=== PATIENT | male | born 1965 | race Caucasian/White ===

== ENCOUNTER 2020-04-07 12:41 | Outpatient (CLI) | payer OTHER, SELFPAY ==
--- NOTE | ~2020-04-07 | MR_ITS ---
EXAMINATION: MR knee LT wo con DATE: 04/07/2020 13:36 INDICATION: Left knee pain TECHNIQUE: Magnetic resonance imaging (MRI) of the left knee was performed without intravenous contra st. Sequences included coronal PD-weighted FSE, coronal PD-weighted FS FSE, sagittal T2-weighted FSE , sagittal PD-weighted FS FSE and axial PD weighted fat saturated FSE. COMPARISON: None. FINDINGS: Medial compartment: Radial tear/avulsion of the posterior root of the medial meniscus with secondary medial extrusion of the medial meniscal body. There is prominent increased intrasubstance signal in the body of the media l meniscus, without definitive contact the articular surface to suggest tear which would be consisten t with mucoid degeneration. Partial-thickness cartilage loss throughout the medial compartment with d eep fissuring and underlying subarticular edema along the anterior to central weightbearing medial fe moral condyle. There is additional subarticular edema at the central aspect of the medial tibial plat eau. Lateral compartment: Lateral meniscus is normal. Articular cartilage is normal. Patellofemoral compartment: Partial-thickness cartilage loss and deep fissuring with mild subarticular cystic change along the pa tellar apical ridge. Trochlear cartilage appears relatively preserved. Ligaments and tendons: Anterior cruciate ligament is normal. There is increased signal and mild thickening of the posterior cruciate ligament consistent with at partial tear. The medial collateral ligament and fibular collate ral ligament complex are normal. The extensor mechanism is normal. The visualized medial and lateral hamstring tendons as well as the iliotibial band are normal. Fluid: Physiologic amount of fluid in the joint space. No loose osteochondral bodies identified. Osseous/other: Bone alignment is normal. No fracture or pathologic marrow replacing process. IMPRESSION: 1. Full-thickness radial tear/avulsion at the posterior root of the medial meniscus. 2. 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 3. Partial tear of the posterior cruciate ligament. Correlate with physical exam to assess for degree of residual functional integrity. Reviewed, dictated and finalized at location A. AGE BOSS IMPRESSION: 1. Full-thickness radial tear/avulsion at the posterior root of the medial meni scus. 2. Moderate osteoarthritis with extensive high-grade chondral malacia in the me dial compartment and mild patellofemoral osteoarthritis with high-grade chondra l malacia at the patellar apical ridge. 3. Partial tear of the posterior cruciate ligament. Correlate with physical exa m to assess for degree of residual functional integrity.
== END 2020-04-07 12:42 | disposition home or self-care (01) ==
PROVIDERS: PCP Internal Medicine; Visit Provider Orthopaedic Surgery
DX: S83.242A Other tear of medial meniscus, current injury, left knee, initial encounter (principal); M17.12 Unilateral primary osteoarthritis, left knee; S83.522A Sprain of posterior cruciate ligament of left knee, initial encounter
CPT/HCPCS: 73721

== ENCOUNTER 2020-05-02 09:55 | Observation (INO) | payer OTHER, SELFPAY ==
[2020-05-02] VITALS (37 sets, daily range): BP systolic 116–158; BP diastolic 67–105; PULSE 5–63; RESP 13–29; TEMP 36–36.3; O2SAT 94–99; BMI 40.4
--- NOTE | ~2020-05-02 | CT_ITS ---
EXAMINATION: CTA chest PE protocol DATE: 05/02/2020 10:48 INDICATION: Shortness of breath for one week. History of pulmonary embolism. TECHNIQUE: Computed tomography angiography (CTA) of the chest was performed with 100 mL Omnipaque-350 intravenous contrast timed to evaluate the pulmonary arteries. Coronal maximum intensity projection 3D-reconstructions were created by the technologist. Automated exposure control and iterative reconst ruction technique were employed. Exam dose: 1050.92 mGy-cm total exam DLP. COMPARISON: 05/02/2020 portable AP chest FINDINGS: There is diagnostic contrast enhancement of the pulmonary arteries. There is extensive pulmonary embolism in the right upper, middle and particularly lower lobes as well as left upper lobe and left lower lobe pulmonary emboli. Normal size and homogeneous enhancement of the thyroid gland. No thoracic aortic aneurysm or dissection. Normal heart size. Status post sternotomy and coronary artery bypass graft surgery. No pericardial ef fusion. No hilar or mediastinal mass lesion or lymphadenopathy. Minimal bilateral gynecomastia. No pulmonary infiltrate or consolidation or pulmonary mass lesion. Calcified splenic granulomas consistent with old granulomatous disease. Normal morphology of the adrenal glands. IMPRESSION: Bilateral pulmonary embolism Dr. Meneses telephoned the report on 05/02/2020 at 1100 hours to emergency room physician inventory control assistant Amyr denice Reviewed, dictated and finalized at [facility]. Reviewed, dictated and finalized at location A. ESTRIAL ECOLOGIST IMPRESSION: Bilateral pulmonary embolism Dr. Meneses telephoned the report on 05/02/2020 at 1100 hours to emergency room ph ysician inventory control assistant Arthur
--- NOTE | ~2020-05-02 | US_ITS ---
EXAMINATION: US venous doppler [facility] DATE: 05/02/2020 17:25 INDICATION: Shortness of breath TECHNIQUE: [place] scale images without and with compression and Doppler images of the bilateral lower e xtremity veins were obtained. COMPARISON: None FINDINGS: The right common femoral vein, profunda femoral vein, femoral vein, popliteal vein, peroneal trunk, p osterior tibial veins, and greater saphenous vein are patent. The left common femoral vein, profunda femoral vein, femoral vein, popliteal vein, peroneal trunk, po sterior tibial veins, and greater saphenous vein are patent. IMPRESSION: 1. Patent bilateral lower extremity veins. No evidence of deep venous thrombosis. Reviewed, dictated and finalized at location A. RVIS[place] AREA IMPRESSION: 1. Patent bilateral lower extremity veins. No evidence of deep venous thrombosi s.
--- NOTE | ~2020-05-02 | XR_ITS ---
EXAMINATION: XR chest 1V portable EXAM DATE: 05/02/2020 10:31 INDICATION: Shortness of breath; hx of bypass surg 2013 for VT. TECHNIQUE: Portable AP frontal chest x-ray was obtained. There is no prior study for comparison. FINDINGS: Sternotomy wires are present without findings to suggest sternal dehiscence. The lungs are clear. There are no pleural effusions. Cardiac silhouette is prominent but magnified on this AP livan hnique. There is no pneumothorax suspected. The bones and soft tissues are unremarkable. IMPRESSION: No acute cardiopulmonary findings. Reviewed, dictated and finalized at location B. NT LAWYER
--- NOTE | 2020-05-02 09:58 | ECG_ITS ---
Measurements Intervals [place] Rate: 61 P: 38 RI: 181 QRS: -62 QRSD: 178 T: 37 QT: 467 QTc: 473 Interpretive Statements SINUS RHYTHM LEFT AXIS DEVIATION RIGHT BUNDLE BRANCH BLOCK BASELINE ARTIFACT- I, II, III, AVR, AVL, AVF ABNORMAL ECG Electronically Signed On 05-02-2020 14:22:57 NOTE TELLER by Edward Kumar D.O.
--- NOTE | 2020-05-02 09:58 | ED.SOB ---
HPI - SOB/Dyspnea General Chief Complaint: Shortness of Breath/Dyspnea Stated Complaint: SOB Time Seen by Provider: 05/02/20 09:57
[2020-05-02 10:15] LABS: Basophils Absolute Auto 0.1 K/mm3 (0.0-0.1); Basophils Percent Auto 0.5 % (0.2-1.2); Eosinophils Absolute Auto 0.2 K/mm3 (0-0.3); Eosinophils Percent Auto 2.1 % (0-4.4); Hematocrit 46.2 % (42.0-52.0); Hemoglobin 15.2 g/dL (14.0-18.0); Immature Granulocyte Absolute 0.04 K/mm3 (0.00-0.031); Immature Granulocyte Percent A 0.4 % (0-0.5); Lymphocytes Absolute Auto 2.54 K/mm3 (0.9-3.2); Lymphocytes Percent Auto 27.6 % (18.3-44.2); Mean Corpuscular HGB Conc 32.9 g/dl (32-36); Mean Corpuscular Hemoglobin 30.2 pg (26-34); Mean Corpuscular Volume 91.8 fl (80-100); Mean Platelet Volume 9.6 fl (7.4-10.4); Monocytes Absolute Auto 0.9 K/mm3 (0.1-0.6); Monocytes Percent Auto 9.6 % (2.6-8.5); Neutrophils Absolute Auto 5.5 K/mm3 (1.3-6.7); Neutrophils Percent Auto 59.8 % (45.5-73.1); Platelet Count Result 211 k/mm3 (150-375); Red Blood Count 5.03 M/mm3 (4.6-6.20); Red Cell Distribution Width 14.1 % (11.5-14.5); White Blood Count 9.2 K/mm3 (4.5-10.0)
[2020-05-02 10:28] LABS: Alanine Aminotransferase 29 U/L (4-50); Albumin Level 4.5 g/dL (3.5-5.1); Alkaline Phosphatase 77 U/L (38-126); Anion Gap 8 mmol/L (8-16); Aspartate Amino Transferase 25 U/L (17-59); Bilirubin,Total 1.2 mg/dL (0.2-1.3); Blood Urea Nitrogen 16 mg/dL (9-20); Calcium 9.6 mg/dL (8.4-10.2); Carbon Dioxide 33 mmol/L (22-30); Chloride 103 mmol/L (98-107); Estimated CRCL calculation 76 ml/min; Estimated Glomerular Filt Rate 57; Glucose 85 mg/dL (75-110); Potassium 3.9 mmol/L (3.4-5.0); Sodium 144 mmol/L (137-145)
--- NOTE | 2020-05-02 10:32 | ED.GENADULT ---
HPI - General Adult General Chief complaint: Shortness of Breath/Dyspnea Stated complaint: SOB Time Seen by Provider: 05/02/20 09:57 Source: patient Mode of arrival: ambulatory Limitations: no limitations History of Present Illness HPI narrative: Patient presents with chief complaint of increased shortness of breath over the past week. Patient reports he has a history of PEs in the past, but reports he has been off of blood thinners for over a year. Patient states that he notices shortness of breath with minimal exertion such as walking across the room. Patient reports that he presented to have knee surgery today and was told that the surgery was canceled due to his shortness of breath so he came to the emergency department to be evaluated. Patient denies pain upon inspiration, chest pain, swelling in his lower extremities states baseline, nausea, vomiting, fever, cough. Patient denies history of asthma or COPD. Patient denies any wheezing. Patient denies known Covid exposure. Related Data Home Medications Medication Instructions Recorded Confirmed bupropion HCl PO 05/02/20 furosemide 05/02/20 lisinopril 05/02/20 metformin mg 05/02/20 metoprolol tartrate 05/02/20 simvastatin mg 05/02/20 zolpidem 05/02/20 05/02/20 Allergies Allergy/AdvReac Type Severity Reaction Status Date / Time No Known Allergies Allergy Verified 05/02/20 10:02 Review of Systems Review of Systems: Narrative: CONSTITUTIONAL: Denies fever, chills, or sweats. EYES: Denies visual changes, redness, or discharge. ENT: Denies rhinorrhea, congestion, sore throat, or otalgia. CARDIOVASCULAR: Denies chest pain, palpitations, or edema. RESPIRATORY: Reports dyspnea Denies cough GASTROINTESTINAL: Denies abdominal pain, nausea, vomiting, or diarrhea. GENITOURINARY: Denies dysuria or hematuria. SKIN: Denies rash or itching. MUSCULOSKELETAL: Denies back pain, myalgia, or joint pain. NEUROLOGIC: Denies headache, numbness, dizziness, or weakness. PSYCHIATRIC: Denies anxiety or depression. PMFSH Social History Social History Gender identity (if verbalized by the patient): Male Exam Narrative: Exam Narrative: GENERAL: Well-appearing, well-nourished.Obese. HEAD: Normocephalic, atraumatic. EYES: PERRLA and EOMI. NECK: Supple. No adenopathy or masses. No vertebral tenderness or loss of ROM. CHEST: Clear to auscultation. No respiratory distress. No wheezes rales or rhonchi. Slightly tachypneic. HEART: Regular rate and rhythm. Normal peripheral pulses. EXTREMITIES: No acute changes in ROM. No edema. SKIN: Warm, dry, no rash. NEURO: No focal deficits. Alert and oriented x3. PSYCH: Normal mood and affect. Course Vital Signs Vital signs: Vital Signs Temperature 97.4 F L 05/02/20 09:59 Pulse Rate 61 05/02/20 09:59 Respiratory Rate 26 H 05/02/20 09:59 Blood Pressure 155/92 H 05/02/20 09:59 Pulse Oximetry 97 05/02/20 09:59 Temperature 97.4 F L 05/02/20 09:59 Pulse Rate 52 L 05/02/20 12:49 Respiratory Rate 16 05/02/20 12:49 Blood Pressure 158/84 H 05/02/20 12:49 Pulse Oximetry 98 05/02/20 12:49 Medical Decision Making ABG MDM Narrative Medical decision making narrative: Patient has history of PEs and is not on anticoagulants. Patient will be worked up for PE as well as CHF and pneumonia. CTA pulmonary ordered, for further investigation into patient symptoms. Patient does not show signs of right heart strain, elevated troponin with severely elevated BNP. Contacted Dr. Castro to see if close follow-up and initiation of outpatient anticoagulations would be an option. However Dr. Castro's staff states that he will be out of the office until Thursday. They state the patient was on warfarin but stopped on his own recognizance last December 2018 without being told to do so. Patient will need to be admitted for management. Hospitalist paged. Dr. Rivera assessed patient for admission on the medical floor. She is in
[2020-05-02 10:37] LABS: NT Pro B Type Natriuretic Pept 194 PG/ML (5-100)
[2020-05-02 10:41] LABS: D Dimer 6.47 ug/mL (<0.48)
[2020-05-02 11:33] LABS: Troponin I < 0.012 ng/mL (0.000-0.034)
[2020-05-02] MEDS: ENOXAPARIN 80 MG/0.8 ML SYRINGE 130 MG SUB-Q (12:16)
--- NOTE | 2020-05-02 14:45 | ADMGEN ---
This patient, Avinash Deleon, was admitted to Medical Room 254-01. Patient/family oriented to hospital policies and general routines including ID bracelet, bed and alarms, visiting hours, pain management, procedures, bathroom and other care routines, personal items, smoking policy, room service/diet, and visiting hours. Information on how to activate the Rapid Response Team has been discussed. Patient/Family are encouraged to report perceived risks to care and to ask questions if they do not understand what they are told or what they should do.
--- NOTE | 2020-05-02 16:41 | PM.IMHP ---
H&P: HPI History of Present Illness Date/Time: 05/02/20 16:41 Chief Complaint: Shortness of breath Narrative: Avinash Deleon is a 55 year old male morbidly obese with history of hypertension, hyperlipidemia and sleep apnea, patient is on CPAP but not wearing it nighttime, as well as pulmonary emboli which was diagnosed in 2018 and patient was placed on Coumadin for some reason patient states the Coumadin was stopped not sure who is recommended however, patient states the last couple of weeks he had been short of breath and he was scheduled for knee surgery today upon arrival to the OR he was quite short of breath surgeon canceled his knee surgery and for him to go to emergency department for further evaluation, patient had a CT of the chest it showed patient has a bilateral pulmonary emboli, patient was started on Lovenox from emergency depart, currently patient states feeling little better not as short of breath, denies any chest pain palpitation fever or chills, will do lower extremity Doppler to rule out DVT, will do cardiac echo, will discuss with client care representative and will start the patient his Eliquis or Xarelto tomorrow possibly and discharge the patient home Review of Systems Review of Systems: All systems reviewed & are unremarkable except as noted in HPI and below PMFSH Past Medical History Medical History (Updated 05/02/20 @ 16:47 by Mahogany Gonzalez MD) Hypertension LAZARO (obstructive sleep apnea) Family History Family History (Updated 05/02/20 @ 15:06 by Sophia Ballard RN) Mother Acute myocardial infarction Hypertension Diabetes mellitus Father Cerebrovascular accident Social History Social History Smoking status: Never smoker Alcohol intake: current Substance use: never Other substance usage details: rarely alcohol use Gender identity (if verbalized by the patient): Male Sexual Orientation (if Verbalized by the Patient): Straight or Heterosexual Spiritual care concerns: No Meds Home Medications and Allergies Home Medications Medication Instructions Recorded Confirmed Type bupropion HCl 150 mg PO BID 05/02/20 05/02/20 History furosemide 40 mg PO DAILY 05/02/20 05/02/20 History lisinopril 20 mg PO DAILY 05/02/20 05/02/20 History metoprolol tartrate 50 mg PO BID 05/02/20 05/02/20 History simvastatin 40 mg PO HS 05/02/20 05/02/20 History zolpidem 5 mg PO HS 05/02/20 05/02/20 History Allergies Allergy/AdvReac Type Severity Reaction Status Date / Time No Known Allergies Allergy Verified 05/02/20 15:03 Vital Signs Vital Signs - 24 hr 05/02/20 09:59 05/02/20 10:00 05/02/20 10:01 Temperature 97.4 F L Pulse Rate 61 63 61 Respiratory Rate 26 H 26 H 29 H Blood Pressure 155/92 H 155/92 H Pulse Oximetry 97 95 98 05/02/20 10:15 05/02/20 10:16 05/02/20 10:30 Temperature Pulse Rate 55 L 55 L 52 L Respiratory Rate 24 H 19 22 H Blood Pressure 133/78 Pulse Oximetry 94 98 97 05/02/20 10:31 05/02/20 10:55 05/02/20 10:56 Temperature Pulse Rate 52 L 55 L 55 L Respiratory Rate 23 H 18 27 H Blood Pressure 130/77 149/74 H Pulse Oximetry 96 95 96 05/02/20 11:00 05/02/20 11:01 05/02/20 11:15 Temperature Pulse Rate 53 L 53 L 52 L Respiratory Rate 22 H 24 H 24 H Blood Pressure 137/78 137/78 Pulse Oximetry 97 97 99 05/02/20 11:30 05/02/20 11:31 05/02/20 11:39 Temperature Pulse Rate 52 L 53 L 54 L Respiratory Rate 24 H 24 H 22 H Blood Pressure 127/77 158/86 H Pulse Oximetry 99 98 99 05/02/20 11:45 05/02/20 11:46 05/02/20 12:00 Temperature Pulse Rate 51 L 52 L Respiratory Rate 23 H 23 H 17 Blood Pressure 152/82 H Pulse Oximetry 95 98 96 05/02/20 12:01 05/02/20 12:26 05/02/20 12:30 Temperature Pulse Rate 51 L 52 L Respiratory Rate 26 H 23 H 20 Blood Pressure 150/99 H Pulse Oximetry 97 97 96 05/02/20 12:31 05/02/20 12:40 05/02/20 12:45 Temperature Pulse Rate 51 L 52 L 52 L Respiratory Rate 19 21 H 20 Bl
[2020-05-02] MEDS: SIMVASTATIN 20 MG TABLET 40 MG PO (20:20)
[2020-05-02] MEDS: ENOXAPARIN 100 MG/ML SYRINGE SUB-Q (20:21)
[2020-05-02] MEDS: ENOXAPARIN 30 MG/0.3 ML SYRINGE SUB-Q (20:21)
[2020-05-02] MEDS: ZOLPIDEM TARTRATE (*CRX) 5 MG TABLET PO (20:21)
--- NOTE | 2020-05-03 | ECHO_ITS ---
Patient Info Name: Avinash Deleon Age: 55 years : 1965 Gender: Male Ht: 69 in Wt: 273 lbs BSA: 2.51 m2 HR: 52 bpm BP: 133 / 70 mmHg Technical Quality: Good Exam Date: 05/03/2020 9:29 AM Exam Location: [facility] Pulmonary Exam Room: 254 Patient Status: Outpatient Admit Date: 05/02/2020 Staff Ordering Physician: Mahogany Gonzalez MD Photolithographer: Yuridia Ring RDCS Attending Provider: Mai Proctor MD Exam Type: CA echo doppler color flow Study Info Complete two-dimensional, color flow and Doppler transthoracic echocardiogram is performed. Summary 1. Complete two-dimensional, color flow and Doppler transthoracic echocardiogram is performed. 2. Left ventricular systolic function is normal, estimated at 55-60%. 3. There is mildly increased left ventricular wall thickness. 4. Indeterminate diastolic function. 5. There is mild aortic valve sclerosis. 6. There is mild mitral valve regurgitation. 7. There is mild tricuspid valve regurgitation. 8. No pulmonary hypertension, estimated pulmonary arterial systolic pressure is 40 mmHg. 9. There is mild pulmonic regurgitation. Left Ventricle Left ventricular chamber dimension is normal. Left ventricular systolic function is normal, estimated at 55-60%. There is mildly increased left ventricular wall thickness. Left ventricular septal wall motion is normal. Indeterminate diastolic function. Right Ventricle Right ventricular chamber dimension is normal. Right ventricular systolic function is normal. Left Atria Left atrial chamber dimension is normal. Right Atria Right atrial chamber dimension is normal. Aortic Valve The aortic valve is trileaflet. There is mild aortic valve sclerosis. There is no aortic valve stenosis. There is no aortic valve regurgitation. Pulmonic Valve The pulmonic valve is normal. There is no pulmonic valve stenosis. There is mild pulmonic regurgitation. Mitral Valve The mitral valve has normal leaflets. There is no mitral valve stenosis. There is mild mitral valve regurgitation. Tricuspid Valve The tricuspid valve leaflets are normal. There is no significant tricuspid valve stenosis. There is mild tricuspid valve regurgitation. No pulmonary hypertension, estimated pulmonary arterial systolic pressure is 40 mmHg. Pericardium/Pleural The pericardium appears normal. There is no pericardial effusion. Inferior Vena Cava Normal inferior vena cava with >50% collapse upon inspiration consistent with normal right atrial pressure, 5 mmHg. Aorta The aortic root size at the sinus of Valsalva is normal. The prox ascending aorta size is normal. Left Ventricular Outflow Tract Name Value Normal LVOT 2D LVOT Diameter 2.0 cm LVOT Doppler LVOT Peak Gradient 7 mmHg LVOT Mean Gradient 4 mmHg LVOT VTI 30 cm LVOT VTI/AV VTI Ratio 0.9 LVOT Stroke Volume 97 ml LVOT CO 18.2 l/min LVOT CI
[2020-05-03 05:52] LABS: Hematocrit 40.8 % (42.0-52.0); Hemoglobin 13.6 g/dL (14.0-18.0); Mean Corpuscular HGB Conc 33.3 g/dl (32-36); Mean Corpuscular Hemoglobin 30.1 pg (26-34); Mean Corpuscular Volume 90.3 fl (80-100); Mean Platelet Volume 9.6 fl (7.4-10.4); Platelet Count Result 169 k/mm3 (150-375); Red Blood Count 4.52 M/mm3 (4.6-6.20); Red Cell Distribution Width 13.6 % (11.5-14.5); White Blood Count 5.8 K/mm3 (4.5-10.0)
[2020-05-03 05:59] VITALS: BP 133/70; PULSE 52; RESP 16; TEMP 36.7; O2SAT 97
[2020-05-03 06:08] LABS: Anion Gap 7 mmol/L (8-16); Blood Urea Nitrogen 14 mg/dL (9-20); Calcium 8.8 mg/dL (8.4-10.2); Carbon Dioxide 31 mmol/L (22-30); Chloride 103 mmol/L (98-107); Estimated CRCL calculation 87 ml/min; Estimated Glomerular Filt Rate > 60; Glucose 105 mg/dL (75-110); Potassium 3.6 mmol/L (3.4-5.0); Sodium 141 mmol/L (137-145)
[2020-05-03 08:25] VITALS: BP 122/70; PULSE 53
[2020-05-03] MEDS: ENOXAPARIN 100 MG/ML SYRINGE SUB-Q (08:26)
[2020-05-03] MEDS: ENOXAPARIN 30 MG/0.3 ML SYRINGE SUB-Q (08:26)
[2020-05-03] MEDS: FUROSEMIDE 40 MG TABLET PO (08:27)
[2020-05-03] MEDS: lisinopriL 20 MG TABLET PO (08:28)
--- NOTE | 2020-05-03 12:00 | PM.DS ---
DS: Admitting Diagnosis Admitting Diagnosis Admitting Diagnosis: Shortness of breath DS: Discharge Diagnosis Discharge Diagnosis (1) Bilateral pulmonary embolism: Code(s): I26.99 - Other pulmonary embolism without acute cor pulmonale Status: Acute Assessment and Plan: Avinash Deleon is a 55 year old male morbidly obese with history of hypertension, hyperlipidemia and sleep apnea, patient is on CPAP but not wearing it nighttime, as well as pulmonary emboli which was diagnosed in 2018 and patient was placed on Coumadin for some reason patient states the Coumadin was stopped not sure who is recommended however, patient states the last couple of weeks he had been short of breath and he was scheduled for knee surgery today upon arrival to the OR he was quite short of breath surgeon canceled his knee surgery and for him to go to emergency department for further evaluation, patient had a CT of the chest it showed patient has a bilateral pulmonary emboli, patient was started on Lovenox from emergency depart, currently patient states feeling little better not as short of breath, denies any chest pain palpitation fever or chills, will do lower extremity Doppler to rule out DVT, will do cardiac echo, will discuss with vp care management and will start the patient his Eliquis or Xarelto tomorrow possibly and discharge the patient home (2) Hypertension: Code(s): I10 - Essential (primary) hypertension Status: Acute Assessment and Plan: Will resume home medication and monitor (3) LAZARO (obstructive sleep apnea): Code(s): G47.33 - Obstructive sleep apnea (adult) (pediatric) Status: Acute Assessment and Plan: Will increase the patient uses CPAP at home DS: Summary Hospital Course Reason for hospitalization: Chief Complaint: Shortness of breath Narrative: Avinash Deleon is a 55 year old male morbidly obese with history of hypertension, hyperlipidemia and sleep apnea, patient is on CPAP but not wearing it nighttime, as well as pulmonary emboli which was diagnosed in 2018 and patient was placed on Coumadin for some reason patient states the Coumadin was stopped not sure who is recommended however, patient states the last couple of weeks he had been short of breath and he was scheduled for knee surgery today upon arrival to the OR he was quite short of breath surgeon canceled his knee surgery and for him to go to emergency department for further evaluation, patient had a CT of the chest it showed patient has a bilateral pulmonary emboli, patient was started on Lovenox from emergency depart, currently patient states feeling little better not as short of breath, denies any chest pain palpitation fever or chills, will do lower extremity Doppler to rule out DVT, will do cardiac echo, will discuss with vp care management and will start the patient his Eliquis or Xarelto tomorrow possibly and discharge the patient home Hospital Course: Patient with hx of PE and he had stopped the anticoagulation sometime ago and presented to with shortness of breath, had CTA of chest showed PE, was started on lovenox, patient had ECHO essentially normal, he is doing fine and stable, will discharge patient on Eliquis to follow up with primary care provider Status at Discharge Functional status at discharge: independent ambulation Overall status at discharge: patient is back to baseline Time Spent with Patient Time attestation: Total time spent providing and/or coordinating discharge services:Patient was seen and examined at the time of the discharge Condition at discharge is stable Code status: Full code. Time spent preparing discharge summary, discharge medications, discussing discharge planning with mattress spring encaser and patient is 35 minutes. Time spent: Greater than 30 minutes DS: Data Data Completed and Pending Labs on day of discharge: Labs from last 24 hours 05/03/20 05/03/20 05:38 05:38 WBC 5.8 RBC 4.52 L Hgb 13.6 L Hct
== END 2020-05-03 13:02 | disposition home or self-care (01) ==
LOC: ANHED 13:11 → ANH2MED 15:07
PROVIDERS: Physician Assistant; Admitting Provider Family Medicine; Emergency Provider Emergency Medicine; PCP Internal Medicine; Visit Provider Family Medicine
DX: I26.99 Other pulmonary embolism without acute cor pulmonale (principal); I10 Essential (primary) hypertension; E78.5 Hyperlipidemia, unspecified; G47.33 Obstructive sleep apnea (adult) (pediatric); I34.0 Nonrheumatic mitral (valve) insufficiency; I36.1 Nonrheumatic tricuspid (valve) insufficiency; I37.1 Nonrheumatic pulmonary valve insufficiency
CPT/HCPCS: 36415; 71045; 71275; 80048; 80053; 83880; 84484; 85025; 85027; 85380; 93005; 93306; 93970; 96372; 99285; A9270; G0378; G0379; J1650; Q9967

== ENCOUNTER 2020-08-22 13:45 | Outpatient (CLI) | payer OTHER, SELFPAY ==
--- NOTE | ~2020-08-22 | CT_ITS ---
EXAMINATION: CTA chest PE protocol DATE: 08/22/2020 14:35 INDICATION: Acute pulmonary embolism with acute cor pulmonale TECHNIQUE: Computed tomography angiography (CTA) of the chest was performed with 100 mL Omnipaque-350 intravenous contrast timed to evaluate the pulmonary arteries. Coronal maximum intensity projection 3D-reconstructions were created by the technologist. Automated exposure control and iterative reconst ruction technique were employed. Exam dose: 915.54 mGy-cm total exam DLP. COMPARISON: 05/02/2020 CT pulmonary scan FINDINGS: There is moderate opacification of the pulmonary arteries and no evidence of pulmonary embo lism. No thoracic aortic aneurysm or dissection. Coronary artery calcification. Status post sternotomy and probable coronary bypass graft surgery. No pericardial or pleural effusion. Heart size is within normal range. Calcified aortopulmonary window and left hilar nodes and calcified left upper lobe pulmonary granulom a, consistent with old granulomatous disease. There are calcified splenic granulomas as well. No pulmonary infiltrate or consolidation or pulmonary mass lesion. Minimal bilateral gynecomastia. Diffuse idiopathic skeletal hyperostosis of the thoracic spine. 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 No suspicious osteolytic or osteoblastic lesions are noted. IMPRESSION: No evidence of pulmonary embolism Reviewed, dictated and finalized at Location [facility]. Reviewed, dictated and finalized at location A.
[2020-08-22 14:30] LABS: Estimated Glomerular Filt Rate 52
== END 2020-08-22 13:46 | disposition home or self-care (01) ==
PROVIDERS: PCP Internal Medicine; Visit Provider Internal Medicine Hematology & Oncology
DX: I26.99 Other pulmonary embolism without acute cor pulmonale (principal)
CPT/HCPCS: 71275; Q9967

== ENCOUNTER 2021-10-17 10:26 | Outpatient (CLI) | payer OTHER, SELFPAY ==
--- NOTE | 2021-10-17 12:00 | NEURO_ITS ---
Impression: # Complains of numbness of left hand. # Severe left Carpal Tunnel Syndrome. # No ulnar neuropathy. # Abnormal needle/EMG exam. Nerve Conduction Studies Anti Sensory Summary Table Stim Site NR Peak (ms) P-T Amp (?V) Site1 Site2 Delta-P (ms) Dist (cm) Juan (m/s) Left Median Anti Sensory (2-3nd Digit) Wrist 6.5 13.1 Wrist 2-3nd Digit 6.5 14.0 22 Wrist 6.4 10.3 Wrist 2-3nd Digit 6.5 14.0 22 Left Radial Anti Sensory (Base 1st Digit) Wrist 2.1 30.3 Wrist Base 1st Digit 2.1 0.0 Left Ulnar Anti Sensory (5th Digit) Wrist 2.1 40.7 Wrist 5th Digit 2.1 14.0 67 Motor Summary Table Stim Site NR Onset (ms) O-P Amp (mV) Site1 Site2 Delta-0 (ms) Dist (cm) Juan (m/s) Left Median Motor (Abd Poll Brev) Wrist 7.3 1.6 Elbow Wrist 5.2 28.0 54 Elbow 12.5 1.8 Left Ulnar Motor (Abd Dig Minimi) Wrist 2.1 7.0 A Elbow Wrist 5.6 31.0 55 A Elbow 7.7 6.4 F Wave Studies NR F-Lat (ms) L-R F-Lat (ms) Left Median (Mrkrs) (Abd Poll Brev) 32.92 Left Ulnar (Mrkrs) (Abd Dig Min) 32.16 EMG Side Muscle Nerve Root Ins Act Fibs Amp Dur Recrt Comment Left 1stDorInt Ulnar C8-T1 Nml Nml Nml Nml Nml Left Ext Indicis Radial (Post Int) C7-8 Nml Nml Nml Nml Nml Left Ext Digitorum Radial (Post Int) C7-8 Nml Nml Nml Nml Nml Left BrachioRad Radial C5-6 Nml Nml Nml Nml Nml Left PronatorTeres Median C6-7 Nml Nml Nml Nml Nml Left Abd Poll Brev Median C8-T1 Nml Nml Incr >12ms Reduced MTDD
== END 2021-10-17 10:27 | disposition home or self-care (01) ==
LOC: ANHNEURO 10:27
PROVIDERS: PCP Internal Medicine; Visit Provider Physician Assistant Surgical
DX: M79.642 Pain in left hand (principal); G56.02 Carpal tunnel syndrome, left upper limb; R94.131 Abnormal electromyogram [EMG]
CPT/HCPCS: 95886; 95909

== ENCOUNTER 2021-12-14 06:47 | Outpatient (CLI) | payer OTHER, SELFPAY ==
--- NOTE | 2021-12-14 07:21 | ECG_ITS ---
Measurements Intervals [place] Rate: 58 P: 34 TN: 198 QRS: 108 QRSD: 176 T: 39 QT: 462 QTc: 454 Interpretive Statements SINUS BRADYCARDIA INDETERMINATE AXIS RIGHT BUNDLE BRANCH BLOCK ABNORMAL ECG COMPARED TO ECG 05/02/2020 10:02:47 HEART RATE HAS DECREASED Electronically Signed On 12-14-2021 13:28:33 CDT by Hans Wahl M.D.
[2021-12-14 08:19] LABS: Anion Gap 11 mmol/L (8-16); Blood Urea Nitrogen 18 mg/dL (9-20); Calcium 9.1 mg/dL (8.4-10.2); Carbon Dioxide 22 mmol/L (22-30); Chloride 107 mmol/L (98-107); Estimated Glomerular Filt Rate > 60; Glucose 159 mg/dL (65-110); Sodium 140 mmol/L (137-145)
== END 2021-12-14 06:48 | disposition home or self-care (01) ==
LOC: ANHLAB 06:48
PROVIDERS: PCP Internal Medicine; Visit Provider Anesthesiology
DX: T50.1X5A Adverse effect of loop [high-ceiling] diuretics, initial encounter (principal); I10 Essential (primary) hypertension; Z01.818 Encounter for other preprocedural examination; I45.10 Unspecified right bundle-branch block
CPT/HCPCS: 36415; 80048; 93005

== ENCOUNTER 2021-12-18 01:22 | Day surgery (SDC) | payer OTHER, SELFPAY ==
[2021-12-13 16:30] VITALS: BMI 44.3
--- NOTE | 2021-12-13 17:31 | PC.NURSE ---
Report to the Outpatient Waiting Room, entrance under the green pavilion located off [facility], at 0700 on 12-18-21. OR Time: 0900. - You and your visitor will be asked to self-screen and do not enter if you have any COVID symptoms. - Only one visitor and NO children visitors are allowed at this time. - The patient visitor is requested to leave or wait in car when not with patient due to restrictions. - A mask is required within the hospital. Patients may have clear liquids (water, carbonated beverages, clear teas, apple juice) until 3 hours prior to surgery with a maximum of 20 ounces. 0600 - No food from midnight until time of surgery - Infants may have breast milk until 4 hours before surgery, formula 6 hours prior to surgery. - Children will be allowed to drink immediately following surgery. If applicable, please bring a bottle or sippy cup to assist with drinking. Juice, water, soda, and popsicles are readily available. For infants on formula, please bring formula the day of surgery. Pacifiers are allowed. Take the following medications with a SIP of water the morning of surgery: metoprolol Medications to discontinue per physician: Eliquis Date to take last dose 12-13-2021 Please no make-up, nail maltese, hairspray, perfume, deodorant, or body powder the day of surgery. No jewelry (including any body piercings) or valuables the day of surgery, leave them at home. Please take a shower or bath the night before, or the morning of, surgery with an antibacterial soap. Wear comfortable, loose fitting clothing. Children are encouraged to wear pajamas. - Jewelry must be removed prior to entering the operating room. Rings and piercings that are not removed may be cut off. - The hospital will not accept responsibility for valuables. - Please leave all valuables, including medications, at home the day of surgery. If you are going home after surgery, a licensed tower truck driver must drive you home. - NO public transportation without another adult. - We recommend that an adult stay with you for 24 hours following discharge. - We also recommend that you do not drive, make important decision, drink alcoholic beverages, or take any drugs that were not prescribed by your health care provider for at least 24 hours after your discharge time. For Pediatric surgeries, we recommend two adults accompany the child home (only one inside the building at this time). Follow any additional instructions given to you from your surgeon. If you or anyone in your household have experienced Covid symptoms in the past week, please notify your surgeon or the nurse liaison at the phone number below for possible testing. Telephone instructions given to Tod Deleon and asked if any additional questions and then verbalized understanding. Patient advised to call surgeon office or pre surgery nurse liaison [phone] if any additional questions.
--- NOTE | 2021-12-16 12:50 | PM.IMHP ---
H&P: HPI History of Present Illness Date/Time: 12/16/21 12:50 Chief Complaint: the patient is a 56-year-old male who presents with chronic left hand numbness and tingling in the median nerve distribution. He has aching pain worse activity somewhat relieved by rest although he has nocturnal wakening his hand frequently falls asleep he cannot edge plugger or grasp things for long periods. Denies any specific trauma or injury to the hand this has been chronic in nature in worsening with time. He has signs and symptoms consistent with left carpal tunnel syndrome he tried a course of anti-inflammatories bracing and activity modification without significant relief. An EMG study was then performed this shows severe left carpal tunnel syndrome no evidence of ulnar neuropathy. He has all nerve entrapment at the wrist, the patient has discussed further treatment options in detail Dr. Greer he would now like To proceed with left carpal tunnel release. Review of Systems Review of Systems: left carpal tunnel Symptoms otherwise unremarkable. [facility] Past Medical History Medical History Hypertension LAZARO (obstructive sleep apnea) Family History Family History Mother Acute myocardial infarction Hypertension Diabetes mellitus Father Cerebrovascular accident Social History Social History Smoking status: Never smoker Second hand tobacco smoke exposure: No Alcohol intake: never Substance use: never Substance use type: does not use Other substance usage details: rarely alcohol use Gender identity (if verbalized by the patient): Male Sexual Orientation (if Verbalized by the Patient): Straight or Heterosexual Spiritual care concerns: No Meds Home Medications and Allergies Home Medications Medication Instructions Recorded Confirmed Type furosemide 40 mg tablet 40 mg PO DAILY 05/02/20 12/13/21 History lisinopril 20 mg tablet 20 mg PO DAILY 05/02/20 12/13/21 History metoprolol tartrate 50 mg tablet 50 mg PO BID 05/02/20 12/13/21 History simvastatin 40 mg tablet 40 mg PO HS 05/02/20 12/13/21 History zolpidem 10 mg tablet 5 mg PO HS 05/02/20 12/13/21 History apixaban 5 mg (74 tabs) tablets in 5 mg PO BID 12/24/20 12/13/21 History a dose pack Rybelsus DAILY 12/13/21 History metformin 1,000 mg tablet 1,000 mg PO HS 12/13/21 12/13/21 History Allergies Allergy/AdvReac Type Severity Reaction Status Date / Time No Known Allergies Allergy Verified 12/13/21 16:28 Exam Narrative: On exam the patient is noted be 5 ft 9 in tall 305 lb well-developed moderately obese male no acute distress alert oriented x3. Normal mood and affect. Hearing and vision intact. Respiratory is good no distress. Pulse regular rate rhythm. Abdomen obese and benign. Extremities showed the patient's left hand have decreased sensation light touch in the median nerve distribution subjectively with a positive Tinel's positive carpal tunnel compression test at the wrist. He has full range of motion hand wrist and fingers. Neurovascular is otherwise intact. Telecom Coordinator strength is 5 5 except limited by his symptoms. There is no effusion or swelling no erythema heat or other signs of infection. Skin is intact. Central nervous system within normal limits. EMG study shows severe left carpal tunnel syndrome. Assessment and Plan Assessment and plan (1) Left carpal tunnel syndrome: Code(s): G56.02 - Carpal tunnel syndrome, left upper limb Status: Acute Plan By EMG and exam the patient is noted to have severe left carpal tunnel syndrome. The patient has discussed risks benefits limitations and alternatives to surgery in great detail with Dr. Greer, the patient is now ready to proceed with a left carpal tunnel release. The patient is scheduled to undergo surgery 12/18/2021 at [facility]
--- NOTE | 2021-12-17 13:14 | WPDANESEPPF ---
Anes - Initial Pre Proc Eval Procedure: Operation Date: 12/18/21 07:30 Proposed Procedures p Left Carpal Tunnel Release - Mychal Greer MD Date/Time: 12/17/21 13:14 Surgeon: Mychal Greer MD Pre Op Diagnosis: Carpal Tunnel Synd Lt Wrist Patient Data Age: 56 Gender: M Height: 1.75 m Weight: 136.08 kg Allergies Allergy/AdvReac Type Severity Reaction Status Date / Time No Known Allergies Allergy Verified 12/18/21 06:11 Home Medications Medication Instructions Recorded Confirmed Type furosemide 40 mg tablet 40 mg PO DAILY 05/02/20 12/18/21 History lisinopril 20 mg tablet 20 mg PO DAILY 05/02/20 12/18/21 History metoprolol tartrate 50 mg tablet 50 mg PO BID 05/02/20 12/18/21 History simvastatin 40 mg tablet 40 mg PO HS 05/02/20 12/18/21 History zolpidem 10 mg tablet 5 mg PO HS 05/02/20 12/18/21 History apixaban 5 mg (74 tabs) tablets in 5 mg PO BID 12/24/20 12/18/21 History a dose pack Rybelsus DAILY 12/13/21 History metformin 1,000 mg tablet 1,000 mg PO HS 12/13/21 12/18/21 History Patient hx anesthesia problems: none Family hx anesthesia problems: none Results Review: All pre-operative results and documents have been reviewed as part of the pre-operative evaluation. [facility] Past Medical History Medical History (Updated 12/17/21 @ 13:16 by Pedrito Wahl DO) Anxiety CAD (coronary artery disease) Diabetes type 2, controlled DVT (deep venous thrombosis) GERD (gastroesophageal reflux disease) History of heart attack History of pulmonary embolism Hyperlipidemia Hypertension LAZARO (obstructive sleep apnea) CPAP Family History Family History Mother Acute myocardial infarction Hypertension Diabetes mellitus Father Cerebrovascular accident Social History Social History Smoking status: Never smoker Second hand tobacco smoke exposure: No Alcohol intake: never Substance use: never Substance use type: does not use Other substance usage details: rarely alcohol use Living arrangements: with family Gender identity (if verbalized by the patient): Male Sexual Orientation (if Verbalized by the Patient): Straight or Heterosexual Spiritual care concerns: No Anes - Eval Final PreProcedure Day of Procedure 12/17/21 13:14 Patient weight: morbidly obese Heart: regular rate and rhythm Lungs: clear to auscultation Airway: Mallampati scale class 1 Neurological: alert and oriented Last oral intake: >/= 8 hours ASA classification: III Emergent: no Anesthetic plan: proceed Anesthesia type and monitoring: general LMA and standard monitoring Results Review: All pre-operative results and documents have been reviewed as part of the pre-operative evaluation. Informed Consent: The patient's anesthetic plan and its attendant risks and benefits were discussed with the patient/family/POA. Questions were solicited and answers provided to the satisfaction of the patient/family/POA.
[2021-12-18] MEDS: ACETAMINOPHEN 500 MG TABLET 1000 MG PO (06:20)
[2021-12-18] MEDS: LACTATED RINGERS 1,000 ML 30 ML IV CONT (06:30)
[2021-12-18 06:35] LABS: Glucose Point of Care 143 mg/dl (65-105)
--- NOTE | 2021-12-18 06:57 | WPDHPUPDATE1 ---
History and Physical Update Update Date/Time: 12/18/21 06:57 History and Physical has been reviewed, including an updated exam of the patient. There are NO changes in the patient's condition. Risks, benefits, and alternatives have been discussed and questions answered. Patient agrees to proceed with procedure.
[2021-12-18] MEDS: KETOROLAC 15 MG/ML VIAL (*BKC) IV PUSH (07:08)
[2021-12-18] MEDS: ceFAZolin 3 GM/D5W 100 ML 100 ML IVPB (07:15)
[2021-12-18 07:16] VITALS: BP 142/74; PULSE 59; RESP 16; TEMP 36.4; O2SAT 97
--- NOTE | 2021-12-18 07:49 | W.PM.PROC2 ---
Procedure Note - Detailed Date of Procedure 12/18/21 Pre-op Diagnosis Carpal Tunnel Synd Lt Wrist Post-op Diagnosis Same Procedure Performed [Left] carpal tunnel release Surgeon Mychal Greer MD Anesthesia MAC Description of Procedure After sterile prep and drape, I injected the area of intended incision with 10ml of 1% lidocaine. A longitudinal incision was made in line with the ulnar boarder of the third finger. Disection carried down to the fascia, the fascia split and the carpal ligament identified. The carpal ligament was released and the flexor retinaculum was released as well. The nerve was noted to be red purple in color and in continuity. The wound was irrigated, hemostatis was obtained and closed with 3-0 prolene. The carpal ligament ws extremely thick. Estimated Blood Loss 5 Drains No Packing No Pathology None sent Complications No immediate complications Condition Stable Disposition Same day
[2021-12-18 08:09] LABS: Glucose Point of Care 142 mg/dl (65-105)
[2021-12-18 08:10] VITALS: BP 90/47; PULSE 50; RESP 12; O2SAT 97
[2021-12-18 08:40] VITALS: BP 113/70; PULSE 50; RESP 12
[2021-12-18 09:10] VITALS: BP 119/65; PULSE 46; RESP 16
== END 2021-12-18 09:51 | disposition home or self-care (01) ==
PROVIDERS: PCP Internal Medicine; Visit Provider Orthopaedic Surgery
PROC: (CPT 64721; principal; 2021-12-18 07:30)
DX: G56.02 Carpal tunnel syndrome, left upper limb (principal); I25.10 Atherosclerotic heart disease of native coronary artery without angina pectoris; E11.9 Type 2 diabetes mellitus without complications; F41.9 Anxiety disorder, unspecified; K21.9 Gastro-esophageal reflux disease without esophagitis; I25.2 Old myocardial infarction; I10 Essential (primary) hypertension; E78.5 Hyperlipidemia, unspecified; G47.33 Obstructive sleep apnea (adult) (pediatric); Z86.718 Personal history of other venous thrombosis and embolism; Z86.711 Personal history of pulmonary embolism; E66.01 Morbid (severe) obesity due to excess calories; Z68.41 Body mass index [BMI] 40.0-44.9, adult; Z79.01 Long term (current) use of anticoagulants; Z79.84 Long term (current) use of oral hypoglycemic drugs; Z79.899 Other long term (current) drug therapy
CPT/HCPCS: 64721; 82948; A9270; J0690; J1885; J2250; J3010; J7120

== ENCOUNTER 2023-12-24 09:14 | Outpatient (CLI) | payer MEDICARE, MEDICAID, SELFPAY ==
--- NOTE | ~2023-12-24 | US_ITS ---
US renal BI 12/24/2023 10:01 Procedure: Realtime transabdominal ultrasound of the kidneys and bladder. Indication: Stage IIIB chronic kidney disease Comparison: No prior studies for comparison. Findings: Renal echotexture is normal bilaterally without hydronephrosis, contour deforming mass or r enal calculus. There is a 9 mm left renal cyst inferiorly. The right kidney measures 12.1 cm and left kidney measures 10.9 cm. Bladder within normal limits. Impression: 1: Left renal cyst measuring 9 mm at the lower pole. Reviewed, dictated and finalized at location B. Impression: 1: Left renal cyst measuring 9 mm at the lower pole.
== END 2023-12-24 09:15 | disposition home or self-care (01) ==
LOC: ANHIMG 09:19
PROVIDERS: PCP Internal Medicine
DX: N18.32 Chronic kidney disease, stage 3b (principal); N28.1 Cyst of kidney, acquired
CPT/HCPCS: 76775